=== PATIENT | male | born 1975 | race Two or more races ===

== ENCOUNTER 2023-08-25 07:01 | Day surgery (SDC) | payer BC ==
[~2023-08-25] VITALS: Ht 180.3 cm; Wt 113.4 kg
[~2023-08-25 07:01] MED LIST: EMPA1TAB PO; LISI40TA16 PO; METO25TA5 PO; SEMA2INJ3 SC; ceFAZolin 2 GM/D5W100ml 100 ML IV ONE
[2023-08-25] MEDS ORDERED: ONDANSETRON HCL 4 MG/2 ML VIAL IV PRN (08:45)
[2023-08-25] MEDS ORDERED: PROPOFOL 10 MG/ML 20 ML IV ONE (08:45)
[2023-08-25] MEDS ORDERED: HYDROmorphone HCL 2 MG/ML VL/or syr IV PRN (08:45)
[2023-08-25] MEDS ORDERED: MEPERIDINE HCL (25 MG/ML) 1ML VIAL IV PRN (08:45)
[2023-08-25] MEDS ORDERED: fentaNYL CITRATE 100 MCG/2 ML VL ONE (08:45)
[2023-08-25] MEDS ORDERED: MEPERIDINE HCL (25 MG/ML) 1ML VIAL ONE ×2 (08:57→09:19)
[2023-08-25 09:34] VITALS: PULSE 86; RESP 14; TEMP 98.4; O2SAT 95
[2023-08-25 09:45] VITALS: PULSE 84; O2SAT 100
[2023-08-25 10:05] VITALS: PULSE 79; RESP 19
[2023-08-25 10:35] VITALS: BP 157/99; O2SAT 98
== END 2023-08-25 11:00 | disposition home or self-care (01) ==
LOC: SUR 07:01
PROVIDERS: ATTEND Orthopaedic Surgery Adult Reconstructive Orthopaedic Surgery
DX: G56.01 Carpal tunnel syndrome, right upper limb (principal); G56.21 Lesion of ulnar nerve, right upper limb; E11.9 Type 2 diabetes mellitus without complications; I10 Essential (primary) hypertension; E78.5 Hyperlipidemia, unspecified; Z79.899 Other long term (current) drug therapy; Z79.84 Long term (current) use of oral hypoglycemic drugs
CPT/HCPCS: 64718; 64721; 82962; J2175; J2704; J3010